=== PATIENT | male | born 1990 ===

== ENCOUNTER 2017-12-05 17:46 | Emergency (ER) | payer SELFPAY ==
[2017-12-05 17:54] VITALS: BP 123/74; PULSE 55; RESP 18; TEMP 97.6; O2SAT 96
--- NOTE | 2017-12-05 18:37 | C.PDOC ---
History Of Present Illness 27 y/o male presents to the ED for evaluation of "allergy" to the hands and face , onset 4 days ago. Patient states the affect areas were itchy the first day, but have improved since. He has been taking Benadryl at home with some improvement. No known sick contacts. He denies exposure to new medications, lotions, detergent, or food. Otherwise patient denies any fever, throat/lip swelling, or shortness of breath. Time Seen by Provider: 12/05/17 18:17 Chief Complaint (Nursing): Abnormal Skin Integrity History Per: Patient History/Exam Limitations: no limitations Onset/Duration Of Symptoms: Days Current Symptoms Are (Timing): Still Present Past Medical History Reviewed: Historical Data, Nursing Documentation, Vital Signs Vital Signs: Last Vital Signs Temp 97.6 F 12/05/17 17:52 Pulse 55 L 12/05/17 17:52 Resp 18 12/05/17 17:52 BP 123/74 12/05/17 17:52 Pulse Ox 96 12/05/17 18:50 Family History: States: No Known Family Hx - Social History Hx Alcohol Use: No Hx Substance Use: No - Immunization History Hx Tetanus Toxoid Vaccination: No Hx Influenza Vaccination: No Hx Pneumococcal Vaccination: No Review Of Systems Constitutional: Negative for: Fever, Chills Eyes: Negative for: Vision Change ENT: Negative for: Mouth Swelling, Throat Swelling Respiratory: Negative for: Shortness of Breath Skin: Positive for: Rash Neurological: Negative for: Weakness, Numbness, Incoordination Physical Exam - Physical Exam Appears: Well, Non-toxic, No Acute Distress Skin: Warm, Rash (Skin-colored maculopapular rash to the face and hands) Head: Atraumatic, Normacephalic Eye(s): bilateral: Normal Inspection, EOMI Oral Mucosa: Moist Tongue: No Swelling Lips: No Swelling Throat: Normal, No Erythema, No Exudate, No Drooling Neck: Normal ROM, Supple Chest: Symmetrical Cardiovascular: Rhythm Regular Respiratory: Normal Breath Sounds, No Accessory Muscle Use, Other (No respiratory distress) Neurological/Psych: Oriented x3, Normal Speech ED Course And Treatment O2 Sat by Pulse Oximetry: 96 (RA) Pulse Ox Interpretation: Normal Progress Note: Case discussed with ED attending Dr. Man, who evaluated patient at bedside and recommends he continue with Benadryl at home. Patient is resting comfortably, tolerating PO, has no shortness of breath, has no intra- oral swelling, no stridor. Patient is stable for discharge home. Counseled regarding treatment plan and advised to follow up with PMD in 1-2 days. Disposition Counseled Patient/Family Regarding: Diagnosis, Need For Followup, Rx Given - Disposition Disposition: HOME/ ROUTINE Disposition Time: 18:36 Condition: STABLE Additional Instructions: Vaya a adam mdico o la clnica en 2-5 feng sin falta, para mas evaluacin. Amorita los medicamentos yee indicado. Volver a la yareli de emergencia en cualquier momento si los sntomas persisten o empeoran. Prescriptions: DiphenhydrAMINE [Benadryl] 25 mg PO Q6 #20 cap Instructions: Heat Rash Forms: [facility] (Sammarinese) Print Language: MONGOLIAN - POA Present On Arrival: None - Clinical Impression Clinical Impression: Rash - PA / STRUCT[employer]RAFTSMAN / Resident Statement MD/DO has reviewed & agrees with the documentation as recorded. - Scribe Statement The provider has reviewed the documentation as recorded by the Scribe (Lilibeth Mckoy) All medical record entries made by the Scribe were at my direction and personally dictated by me. I have reviewed the chart and agree that the record accurately reflects my personal performance of the history, physical exam, medical decision making, and the department course for this patient. I have also personally directed, reviewed, and agree with the discharge instructions and disposition.
--- NOTE | 2017-12-05 18:38 | C.PDOC ---
Time Seen by Provider: 12/05/17 18:17 Chief Complaint (Nursing): Abnormal Skin Integrity Past Medical History Vital Signs: Last Vital Signs Temp 97.6 F 12/05/17 17:52 Pulse 55 L 12/05/17 17:52 Resp 18 12/05/17 17:52 BP 123/74 12/05/17 17:52 Pulse Ox 96 12/05/17 17:52 - Social History Hx Alcohol Use: No Hx Substance Use: No - Immunization History Hx Tetanus Toxoid Vaccination: No Hx Influenza Vaccination: No Hx Pneumococcal Vaccination: No ED Course And Treatment O2 Sat by Pulse Oximetry: 96 Disposition - Disposition Disposition: HOME/ ROUTINE Disposition Time: 18:36 Condition: STABLE Additional Instructions: Vaya a adam mdico o la clnica en 2-5 feng sin falta, para mas evaluacin. [place] los medicamentos yee indicado. Volver a la yareli de emergencia en cualquier momento si los sntomas persisten o empeoran. Prescriptions: DiphenhydrAMINE [Benadryl] 25 mg PO Q6 #20 cap Instructions: Heat Rash Print Language: WOLOF
== END 2017-12-05 19:05 | disposition home or self-care (01) ==
LOC: C.ER 17:46
DX: R21 Rash and other nonspecific skin eruption (principal)